=== PATIENT | male | born 1995 | race Caucasian/White ===

== ENCOUNTER 2017-03-02 20:12 | Emergency (ER) | payer BC ==
[~2017-03-02] VITALS: Ht 175.3 cm; Wt 61.2 kg
[~2017-03-02 20:12] MED LIST: ALBU0.0939 IH; HYDR10TA3 PO
--- NOTE | 2017-03-02 20:12 | NUR ---
PT [facility], PREBOOK. TAKEN TO [facility]
--- NOTE | 2017-03-02 20:18 | NUR ---
Dr. Rodriguez evaluating patient
[2017-03-02 20:23] VITALS: BP 132/61
[2017-03-02 20:39] VITALS: BP 131/60
--- NOTE | 2017-03-02 20:40 | NUR ---
Patient discharged with v/s stable. Written and verbal after care instructions given and explained. Patient alert, oriented and verbalized understanding of instructions. Police with in custody. All questions addressed prior to discharge. ID band removed. Patient advised to follow up with PMD.no Rx given. Patient educated on indication of medication including possible reaction and side effects. Opportunity to ask questions provided and answered.
== END 2017-03-02 20:40 | disposition home or self-care (01) ==
LOC: MED 20:12
DX: M79.641 Pain in right hand (principal); J45.909 Unspecified asthma, uncomplicated
CPT/HCPCS: 99283